=== PATIENT | female | born 1955 | race Caucasian/White ===

== ENCOUNTER → 2016-10-10 | Outpatient (CLI) | payer OTHER | LOC: RAD 11:42 | DX: M25.551 Pain in right hip (principal); M25.512 Pain in left shoulder | CPT/HCPCS: 73030; 73502 ==

== ENCOUNTER 2021-01-03 12:39 | Emergency (ER) | payer OTHER ==
[~2021-01-03 12:39] MED LIST: CITALOPRAM HBR10 MG PO; IBUPROFEN600 MG PO; LEVOTHYROXINE50 MCG PO; LISINOPRIL-HCT1 EACH PO; NORCO 5-325 TA1 EACH PO; RANITIDINE HCL150 M1 PO; ROPINIROLE HCL1 MG PO; VITAMIN B-121000 MCG PO; VITAMIN D32000 UNIT PO
[2021-01-03 13:23] LABS: HEMOGLOBIN 17.1 gm/dl (12.3-15.3); RED BLOOD COUNT 5.96 M/UL (4.00-5.10); WHITE BLOOD COUNT 3.3 K/UL (4.5-11.0)
[2021-01-03 14:01] LABS: BUN/CREATININE RATIO 17 (0-10)
[2021-01-03] MEDS ORDERED: ZOFRAN ODT 4 MG4 MG PO (15:16)
== END 2021-01-03 15:40 | disposition home or self-care (01) ==
LOC: ER1 12:39
PROVIDERS: Physician Assistant
DX: U07.1 COVID-19 (principal); I10 Essential (primary) hypertension; E87.6 Hypokalemia
CPT/HCPCS: 80053; 85025; 96374; 99284; J2405; J7030; U0002